=== PATIENT | male | born 1975 | race Caucasian/White ===

== ENCOUNTER 2017-04-29 15:10 | Day surgery (SDC) | payer MEDICAID ==
[2017-04-28 11:13] VITALS: BMI 22.1
[2017-04-29 16:10] LABS: #Basophils 0.1 thou/uL (0.0-0.2); #Eosinphils 0.3 thou/uL (0.0-0.7); #Lymphocytes 3.5 thou/uL (1.20-3.40); #Monocytes 0.3 thou/uL (0.11-0.59); #Neutrophils 3.9 thou/uL (1.40-6.50); %Eosinophils 3.2 % (0.0-10.0); %Lymphocytes 43.4 % (21.0-51.0); %Monocytes 3.7 % (0.0-10.0); Hematocrit 43.1 % (42.0-52.0); Mean Platelet Volume 7.2 fL (7.4-10.4); White Blood Cell (WBC) Count 8.1 thou/uL (4.8-10.8)
[2017-04-29] MEDS ORDERED: Bupivacaine PF 0.5% 30 ML VIAL ONE (16:59)
[2017-04-29] MEDS ORDERED: Bacitracin Zinc Ointment 30 gm TUBE ONE (16:59)
[2017-04-29] MEDS ORDERED: Fentanyl 100 MCG/2 ML VIAL ONE (17:01)
[2017-04-29] MEDS ORDERED: CEFAZOLIN/Water 2 GM/20 ML SYRINGE ONE (17:06)
[2017-04-29] MEDS ORDERED: Metoclopramide HCl 10 MG/2 ML VIAL ONE (17:25)
[2017-04-29] MEDS ORDERED: Lidocaine 1% PF 5 ML VIAL ONE (17:25)
[2017-04-29] MEDS ORDERED: Ketorolac Tromethamine 30 MG/ML VIAL ONE ×2 (17:25→19:56)
[2017-04-29] MEDS ORDERED: Dexamethasone 20 MG/5 ML VIAL ONE (17:25)
[2017-04-29] MEDS ORDERED: Propofol 200 MG/20 ML VIAL ONE (17:25)
[2017-04-29] MEDS ORDERED: Ondansetron HCl/PF 4 MG/2 ML Vial ONE (17:25)
[2017-04-29] MEDS ORDERED: Midazolam HCl 2 mg/2 ml Vial ONE (17:33)
--- NOTE | 2017-04-29 19:35 | RAD ---
RIGHT FINGER INTRAOPERATIVE FLUOROSCOPY 04/29/17 HISTORY: Finger fracture. FINDINGS/IMPRESSION: Intraoperative fluoroscopy was provided for internal fixation as performed by Dr. Eid. Multiple spot fluoroscopic images show operative hardware and long wire to transfix the distal interphalangeal joint and distal phalanx fracture. POS: CHUCK
[2017-04-29] MEDS ORDERED: Ondansetron HCl/PF 4 MG/2 ML Vial IVP PRN (19:43)
[2017-04-29] MEDS ORDERED: Promethazine HCl 25 MG/ML VIAL IM PRN (19:43)
[2017-04-29] MEDS ORDERED: Promethazine HCl 25 MG/ML VIAL SLOW IVP PRN (19:43)
--- NOTE | 2017-04-30 14:33 | OP ---
DATE OF SURGERY: 04/29/2017 PREOPERATIVE DIAGNOSES: 1. 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 2. Subluxation, distal interphalangeal joint, right index finger. 3. Joint contracture distant interphalangeal joint, right index finger. POSTOPERATIVE DIAGNOSES: 1. 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 2. Subluxation, distal interphalangeal joint, right index finger. 3. Joint contracture distant interphalangeal joint, right index finger. 4. Only minimal union of central portion of the marked position to include subluxed joint and tilted fragment. PROCEDURES PERFORMED: 1. Open treatment of malunion using malunion techniques. 2. Open reduction internal fixation of left phalangeal joint. 3. Joint contracture release dorsal to volar through the incision and joint. 4. Open reduction internal fixation, distal phalanx intra-articular fracture. TOURNIQUET TIME: Would be 60 minutes. ANESTHESIA: General LMA technique augmented by 12 mL 0.5% Marcaine block at the metacarpophalangeal joint level of the index finger performed by [facility]. INDICATION: The patient with longstanding almost 6 months history of fracture for which he self-gabo sina but came to the hospital with inability to fully straighten, and radiographs showed malunion ____ _ malunion and then the approach began. DESCRIPTION OF PROCEDURE: After successful general LMA technique, the limb was prepped and draped, t ourniquet inflated to 250 mmHg pressure. C-arm brought into the field. The limb was exsanguinated a nd we then could visualize on the magnification with the C-arm the fracture with the fracture fragmen ts identified the distal ends so that where we made a cut on the ligaments, the attachment scott t could be maintained. For this reason, the patient had an H-shaped incision made, lifted up and we could then visualize the entire joint. We then brought C-arm into the field, saw the negative fractu re fragments, made the cut distal to internal aspect and lifted up the whole portion of the fra cture. This exposed the joint through the joint was over 60% subluxed. The patient then had the are a irrigated and cleaned. We then did the dorsal defect, closed the volar plate, began to tease it wi th a [place] blade and all the instrumentations that we were able to free it enough so we could easily flex these and reduced the joint as well as flex and extend the DIP joint. We then performed the op en reduction of the chronically subluxed/dislocated interphalangeal joint distal and then from here w e were able to pass a wire across it, 0.45 to hold this in place. fragment then underwent clos ed treatment and closed reduction and then was pinned x2 with pins angling towards the midline. The patient also had now the fragment which is over 60% of joint placed back in place due to anatomical K -wire x2 was placed . Once this was accomplished, C-arm confirmed excellent position. We relea sed the tourniquet. Cap refill was performed, and it was one second. We then closed with the tendon defect just distal to the fracture fragment was not anatomic, this was done with interrupted 5-0 Pro kelly in a running fashion. We then took final c-arm pictures, it was okay to cut the K wire distally and across the distal interphalangeal joint where it was covered by skin for long-term use and this would be in place for 6 weeks. The wound was then closed after hemostasis obtained and tourniquet de flated with interrupted 5-0 nylon simple pattern. The patient left the operating room without compli cations with a splint covering only 2 fingers and leaving all the other fingers . Splint was ap plied. He left the operating room without complication.
== END 2017-04-29 20:50 | disposition home or self-care (01) ==
LOC: SDC 15:10
PROVIDERS: ATTEND Orthopaedic Surgery Hand Surgery
PROC: 0RNW0ZZ Release Right Finger Phalangeal Joint, Open Approach (ICD-10-PCS; principal; 2017-04-29)
PROC: 0PST04Z Reposition Right Finger Phalanx with Internal Fixation Device, Open Approach (ICD-10-PCS; principal; 2017-04-29)
DX: S62.630P Displaced fracture of distal phalanx of right index finger, subsequent encounter for fracture with malunion (principal); S63.24 Subluxation of distal interphalangeal joint of finger; M24.541 Contracture, right hand; J30.2 Other seasonal allergic rhinitis; F12.90 Cannabis use, unspecified, uncomplicated; Z79.899 Other long term (current) drug therapy; Z96.7 Presence of other bone and tendon implants; Z90.49 Acquired absence of other specified parts of digestive tract; Z98.890 Other specified postprocedural states
CPT/HCPCS: 36415; 76001; 85025; 85652; 96372; J1100; J1885; J2001; J2250; J2405; J2704; J2765; J3010; J3490; Q4049; S0020

== ENCOUNTER 2017-06-22 16:18 | Outpatient (CLI) | payer OTHER ==
[2017-06-22 17:18] LABS: #Basophils 0.1 thou/uL (0.0-0.2); #Eosinphils 0.3 thou/uL (0.0-0.7); #Lymphocytes 3.5 thou/uL (1.20-3.40); #Monocytes 0.4 thou/uL (0.11-0.59); #Neutrophils 3.4 thou/uL (1.40-6.50); %Basophils 0.8 % (0.0-1.0); %Eosinophils 3.4 % (0.0-10.0); %Lymphocytes 45.8 % (21.0-51.0); %Monocytes 5.1 % (0.0-10.0); %Neutrophils 44.9 % (42.0-75.0); Hemoglobin 15.8 g/dL (14.0-18.0); Mean Corpuscular HGB CONC 34.1 g/dL (32.0-36.0); Mean Corpuscular Hemoglobin 31.2 pg (27.0-31.0); Mean Corpuscular Volume 91.6 fl (80.0-94.0); Mean Platelet Volume 8.2 fL (7.4-10.4); Platelet Count 229 thou/uL (130-400); RBC Distribution Width 11.4 % (11.5-14.5); Red Blood Cell (RBC) Count 5.07 mill/uL (4.70-6.10); White Blood Cell (WBC) Count 7.5 thou/uL (4.8-10.8)
[2017-06-22 17:54] LABS: Anion Gap 12 mmol/L (10-20); BUN (Urea Nitrogen) 11 mg/dL (8.9-20.6); Calc. Creatinine Clearance 0 mL/min (70-130); Calcium 10.4 mg/dL (7.8-10.44); Carbon Dioxide 29 mmol/L (22-29); Chloride 104 mmol/L (98-107); Estimated GFR-MDRD Greater than 90; Glucose 70 mg/dL (70-105); Potassium 4.2 mmol/L (3.5-5.1); Sodium 141 mmol/L (136-145)
== END 2017-06-22 16:19 | disposition home or self-care (01) ==
LOC: LABBT 16:18
PROVIDERS: ATTEND Orthopaedic Surgery Hand Surgery
DX: Z01.812 Encounter for preprocedural laboratory examination (principal); S61.209A Unspecified open wound of unspecified finger without damage to nail, initial encounter; S62.639A Displaced fracture of distal phalanx of unspecified finger, initial encounter for closed fracture
CPT/HCPCS: 80048; 85025; 85652

== ENCOUNTER 2017-06-26 09:12 | Day surgery (SDC) | payer OTHER ==
[2017-06-22 17:07] VITALS: BMI 23.3
[2017-06-26] MEDS ORDERED: CEFAZOLIN/Water 2 GM/20 ML SYRINGE ONE (09:48)
[2017-06-26] MEDS ORDERED: Bupivacaine PF 0.5% 30 ML VIAL ONE (11:56)
[2017-06-26] MEDS ORDERED: Sodium Chloride 0.9% 10 ML ONE (11:56)
[2017-06-26] MEDS ORDERED: Betamet Acet/Betamet Na Ph 30 MG/5 ML VIAL ONE (11:56)
[2017-06-26] MEDS ORDERED: Bacitracin Zinc Ointment 30 gm TUBE ONE (11:56)
[2017-06-26] MEDS ORDERED: Fentanyl 100 MCG/2 ML VIAL ONE ×2 (11:59→12:25)
[2017-06-26] MEDS ORDERED: Midazolam HCl 2 mg/2 ml Vial ONE ×2 (11:59→12:31)
[2017-06-26] MEDS ORDERED: Meperidine HCl/PF 25 MG/ML VIAL ONE (13:24)
[2017-06-26] MEDS ORDERED: diphenhydrAMINE 50 MG/ML VIAL ONE (13:30)
[2017-06-26] MEDS ORDERED: Famotidine/PF 20 mg/2ml Vial ONE (13:31)
[2017-06-26] MEDS ORDERED: Ketorolac Tromethamine 30 MG/ML VIAL ONE (14:00)
[2017-06-26] MEDS ORDERED: HYDROcodone/Acetaminophen 5/325 mg Tablet ONE (15:27)
--- NOTE | 2017-06-26 23:09 | OP ---
DATE OF PROCEDURE: 06/26/2017 PREOPERATIVE DIAGNOSIS: Right index finger extensor tendon exposed wound, 1.5 cm x 4 mm wide. POSTOPERATIVE DIAGNOSES: 1. Right index finger extensor tendon exposed wound, 1.5 cm x 4 mm wide, with no gross infection. 2. Exposed tendon. 3. Exposed Prolene sutures x5. 4. One wire could be seen in the distal end of the wound subcutaneously, but did not protrude into t he open atmosphere. PROCEDURES PERFORMED: 1. Debridement of wound. a. Excision technique. b. Used tenotomy scissors, Mcclure blade, and a 15-blade knife. c. Depth was down to and including paratenon, but did not violate the joint, dermis, epidermis, and subcutaneous fat. d. There was no gross infection. 2. Removal of sutures under general anesthesia by same surgeon. 3. Rotational flap 3.5 cm x 1.5 cm to cover the area where there was a gap in the wound and exposed tendon was seen. INDICATION: The patient is now 9 months his initial mallet finger injury, and 3 months his initial p rocedure by me. While wearing his splint on the dorsum noticed breakdown of the skin, loss of positi on by about 10 degrees in the sagittal plane, and some subluxation of the joint. So, we brought him to the operating room today to free the joint, achieve some extension, debride the wound, and close i t primariily with a flap. We expected to see exposed tendon. ANESTHESIA: General LMA technique augmented by 6 mL 0.5% Marcaine block, no epinephrine, metacarpoph alangeal joint level. DESCRIPTION OF PROCEDURE: After successful general LMA technique, the limb was prepped and draped. The patient had the time-out done appropriately. We gave him the metacarpophalangeal joint level blo ck. We then undermined the edges of the wound. We removed 1 mm circumference of skin at the wound, notic ed there were 5 Prolene sutures seen, removed all those. The tendon however was intact even with fle xion to 45 degrees. No gap was seen, so, we did not violate the tendon. The joint was without abnor mality visualized from the regions on both the radial and ulnar aspects of the tendon. We then extended the joint from its -25 degree flexion to almost -10, held that, still could not clos e the wound. So, we created a rotational flap, put the base of it laid on the radial aspect of the f sharri back 3.5 cm, small 5-6 mm back cut and then rotated the distal ulnar end into the incision to c ompletely overlap the wound. Then, we closed with 4-0 nylon, no undue tension. Once we closed the d istal end/lead edge with 5 of these, they could easily be approximated with 4-0 nylon simple stitch w ith no undue tension, the primary back part of the flap. The patient had excellent circulation when the tourniquet was deflated in the flap and in the wound. We obtained hemostasis and finished the cl osure. Bulky dressing was applied with the finger now in approximately 10 degrees of flexion. We co uld now flex passively the PIP joint to 105 degrees with no undue tension. Bulky dressing was applie d, finger-tube type gauze technique, and a splint under the DIP with the PIP free and DIP in neutral in the sagittal plane. The patient left the operating room without complications.
== END 2017-06-26 16:00 | disposition home or self-care (01) ==
LOC: SDC 09:12
PROVIDERS: ATTEND Orthopaedic Surgery Hand Surgery
PROC: 0HXFXZZ Transfer Right Hand Skin, External Approach (ICD-10-PCS; principal; 2017-06-26)
DX: S66.390A Other injury of extensor muscle, fascia and tendon of right index finger at wrist and hand level, initial encounter (principal); Z79.2 Long term (current) use of antibiotics; Z79.899 Other long term (current) drug therapy; Z90.49 Acquired absence of other specified parts of digestive tract; Z98.890 Other specified postprocedural states
CPT/HCPCS: 96372; A4216; J0702; J1200; J1885; J2175; J2250; J3010; J3370; J3490; S0020; S0028

== ENCOUNTER 2017-09-21 12:43 | Day surgery (SDC) | payer OTHER ==
[2017-09-21 13:32] LABS: #Eosinphils 0.2 thou/uL (0.0-0.7); #Lymphocytes 3.3 thou/uL (1.20-3.40); #Monocytes 0.4 thou/uL (0.11-0.59); #Neutrophils 3.1 thou/uL (1.40-6.50); %Basophils 0.5 % (0.0-1.0); %Lymphocytes 47.3 % (21.0-51.0); %Neutrophils 44.1 % (42.0-75.0); Hemoglobin 15.3 g/dL (14.0-18.0); Mean Corpuscular HGB CONC 34.5 g/dL (32.0-36.0); Mean Corpuscular Hemoglobin 31.1 pg (27.0-31.0); Mean Corpuscular Volume 90.3 fl (80.0-94.0); Mean Platelet Volume 7.8 fL (7.4-10.4); Platelet Count 231 thou/uL (130-400); RBC Distribution Width 11.8 % (11.5-14.5); Red Blood Cell (RBC) Count 4.91 mill/uL (4.70-6.10); White Blood Cell (WBC) Count 6.9 thou/uL (4.8-10.8)
[2017-09-21] MEDS ORDERED: Thrombin 5000 UNITS/5 ML VIAL ONE (14:45)
[2017-09-21] MEDS ORDERED: Bupivacaine PF 0.5% 30 ML VIAL ONE (14:45)
[2017-09-21] MEDS ORDERED: Sodium Chloride 0.9% 10 ML ONE (14:45)
[2017-09-21] MEDS ORDERED: Lidocaine 1% (PF) 30 ML VIAL ONE (14:45)
[2017-09-21] MEDS ORDERED: Bacitracin Zinc Ointment 30 gm TUBE ONE (14:45)
[2017-09-21] MEDS ORDERED: Promethazine HCl 25 MG/ML VIAL ONE (14:55)
[2017-09-21] MEDS ORDERED: Fentanyl 100 MCG/2 ML VIAL ONE (14:55)
[2017-09-21] MEDS ORDERED: Midazolam HCl 2 mg/2 ml Vial ONE (14:55)
[2017-09-21] MEDS ORDERED: Propofol 500 MG/50 ML VIAL ONE (15:09)
[2017-09-21] MEDS ORDERED: Dexamethasone 20 MG/5 ML VIAL ONE (16:14)
[2017-09-21] MEDS ORDERED: Ketorolac Tromethamine 30 MG/ML VIAL ONE ×2 (16:14→16:29)
[2017-09-21] MEDS ORDERED: Lidocaine 1% PF 5 ML VIAL ONE (16:14)
--- NOTE | 2017-09-21 17:21 | RAD ---
INTRAOPERATIVE FLUOROSCOPY: HISTORY: Wire removal. FINDINGS: There is redemonstration of a fracture. There is irregularity involving the distal phalangeal joint space. The previously noted hardware is no longer evident. IMPRESSION: Removal of hardware. POS: [facility]
--- NOTE | 2017-09-21 21:41 | OP ---
DATE OF PROCEDURE: 09/21/2017 PREOPERATIVE DIAGNOSIS: Pain with deep implant right index. POSTOPERATIVE DIAGNOSIS: Pain with deep implant right index. FINDINGS: 1. No gross infection. 2. Wire buried into the bone, making a deep. 3. Wires removed. No infection is seen, although it was a small erythematous bursa and no joint con gruence of fracture fixation/changes. ANESTHESIA: [place] anesthesia, local infiltrated blockade with 0.5% Marcaine with epinephrine and 5 mL of 1% Xylocaine along with IV sedation, unconscious. PROCEDURE PERFORMED: Removal of deep implant right index finger. C-arm supervision less than or equal to 1 hour. INDICATIONS: The patient had reported that 1 wire remained and after a mallet finger repair, which l ed to healing of the fracture, but the joint had been subluxed alone. He now has almost autofusion, but he has noted the wire was painful and draining and will be visualized. The wire appeared to have more deep into the bone so felt this was more a clinic could handle. TOURNIQUET TIME: 3 minutes, C-arm time 8 seconds. DESCRIPTION OF PROCEDURE: After successful anesthesia listed above, the limb was prepped and draped. Timeout was done appropriately. We waited 5 minutes with the block to take effect and then brought C-arm into the field. Identified the wire, exsanguinate limb and inflated tourniquet to 250 mmHg pr essure. We then dissected a 5 mm incision until we visualized the wire to doubt palpation through the tendon where a longitudinal incision only was made. Anderson with heavy needle dumont, no change of motion o rientation or joint position as visualized with the C-arm. Irrigated the area with 250 mL normal damaris ine through a bulb syringe and the patient had hemostasis obtained. closed with interrupted 5-0 plant sciences professor brain suture and placed a bulky dressing finger tube gauze. Left the operating with no complication.
== END 2017-09-21 17:05 | disposition home or self-care (01) ==
LOC: SDC 12:43
PROVIDERS: ATTEND Orthopaedic Surgery Hand Surgery
PROC: 0RPW04Z Removal of Internal Fixation Device from Right Finger Phalangeal Joint, Open Approach (ICD-10-PCS; principal; 2017-09-21)
DX: Z79.899 Other long term (current) drug therapy; T84.84XA Pain due to internal orthopedic prosthetic devices, implants and grafts, initial encounter; Z98.1 Arthrodesis status; Z98.890 Other specified postprocedural states
CPT/HCPCS: 36415; 76001; 85025; 85652; 96374; A4216; J1100; J1885; J2001; J2250; J2550; J2704; J3010; J3490; S0020